=== PATIENT | female | born 1930 | race Caucasian/White ===

== ENCOUNTER → 2016-10-13 | Outpatient (CLI) | payer MEDICARE ==
--- NOTE | 2016-10-13 15:09 | REP ---
MRI LUMBAR SPINE WITHOUT CONTRAST: HISTORY: Severe back pain and sciatica down to bilateral hips. No comparison imaging. TECHNIQUE: Sagittal and axial T1- and T2-weighted scans are acquired in the usual fashion with and without fat saturation. Sequences include spin echo, turbo spin-echo, and STIR imaging sequences. MRI FINDINGS: At the top of the imaging field of view of today's study, there is evidence of a recent wedge compression fracture deformity involving the T11 vertebral body which shows homogeneous low T1 and heterogeneous high T2 signal intensity. There is approximately 60% loss of anterior vertebral body height. There is evidence retropulsion of approximately 5 mm encroaching on the bony spinal canal. The lower thoracic cord appears displaced posteriorly. STIR images suggest paravertebral edema anterior to this consistent with a subacute compression deformity. There is edema in the spinous process at T11 as well. Consider thoracic MRI study for further evaluation. There is minimal old wedging of L2 vertebral body. The lumbar vertebral body heights are otherwise preserved. There is straightening of the normal lumbar lordosis. There is diffuse degenerative disc disease at each level from L1-2 through L5-S1. At L1-2, there is mild diffuse disc bulging effacing the ventral subarachnoid space. No central canal stenosis or neural foraminal narrowing is seen. At L2-3, there is posterior osteophytic ridging along with disc bulging diffusely. Canal size is adequate. There is right-sided neural foraminal narrowing due to facet hypertrophy. Mild left-sided neural foraminal compromise is noted as well due to facet hypertrophy and disc bulging. At L3-4, there is mild diffuse disc bulging. Mild facet hypertrophy is noted. No neural foraminal encroachment is seen. At L4-5, there is mild facet hypertrophy bilaterally. Diffuse disc bulging is seen. Neural foramen are adequate. No central canal stenosis is seen. At L5-S1, there is diffuse disc bulging and facet hypertrophy. Neural foramen are adequate. No central canal stenosis is seen. IMPRESSION: 1. Diffuse lumbar degenerative spondylosis changes with multiple bulging discs and posterior osteophytic ridging. There is multilevel neural foraminal encroachment. 2. Incidental note is made of a subacute moderate wedge compression fracture deformity at the T11 vertebral body with retropulsion 5 mm displacing the lower thoracic cord dorsally. Consider thoracic spine MRI study. Signed by Nicholas Ordaz MD 10/13/2016 04:45 P
== END ==
LOC: M RAD 12:03
PROVIDERS: ATTEND Internal Medicine
DX: M54.5 Low back pain (principal)